=== PATIENT | male | born 1960 | race African-American/Black ===

== ENCOUNTER 2016-12-13 18:37 | Emergency (ER) | payer MEDICAID ==
[~2016-12-13] VITALS: Ht 182.9 cm; Wt 65.1 kg
[~2016-12-13 18:37] MED LIST: FLUT12AE2 IH; GABA800T2 PO; MORP10CA7 PO; OXYC10TA47 PO; TIOT18CA INH
[2016-12-13] MEDS ORDERED: ALBUTEROL SULFATE 2.5 MG/3 ML NPPB ONE (19:30)
[2016-12-13 19:40] LABS: HEMATOCRIT 41.1 % (39.2-51.8); HEMOGLOBIN 13.6 g/dL (13.7-18.0); WHITE BLOOD COUNT 6.7 x10^3/uL (3.4-10)
[2016-12-13] MEDS ORDERED: ALBUTEROL SULFATE 2.5 MG/3 ML ONE (19:42)
[2016-12-13 19:52] LABS: BLOOD UREA NITROGEN 10 mg/dL (7-18)
[2016-12-13 21:00] VITALS: BP 139/79
== END 2016-12-13 21:03 | disposition home or self-care (01) ==
LOC: ED 20:30
DX: R05 Cough (principal); J44.9 Chronic obstructive pulmonary disease, unspecified; M54.9 Dorsalgia, unspecified; G89.29 Other chronic pain
CPT/HCPCS: 36415; 71020; 80048; 82040; 85025; 93005; 94640; 99285; J7613

== ENCOUNTER 2018-03-14 20:28 | Inpatient (IN) | payer MEDICAID ==
[~2018-03-14] VITALS: Ht 182.9 cm; Wt 63.9 kg
[~2018-03-14 20:28] MED LIST changes: -GABA800T2 PO; +GABA800T5 PO
[2018-03-14] MEDS ORDERED: SODIUM CHLORIDE FLUSH 10ML SYR IVF ONE (21:00)
[2018-03-14] MEDS ORDERED: ALBUTEROL/IPRATROPIUM 2.5MG/0.5MG, 3 ML NPPB ONE (21:00)
--- NOTE | 2018-03-14 21:05 | NUR ---
LATE ENTRY: THIS RN WALKED PT. BACK TO ROOM FROM [facility]. PT. TO ED WITH C/O "I HAVE COPD AND I THINK I MIGHT BE GETTING PNA". PT. REPORTS COUGH, CHILLS, ALL OVER BODY ACHES X 2 DAYS. PT. REPORTS SOB/CHEST PAIN "WITH COUGHING". PT. CHANGED INTO GOWN AND PLACED ON CONTINUOUS PULSE OX, B/P, AND HEART MONITORS. CALL LIGHT IN REACH.
[2018-03-14 21:21] LABS: BASOPHILS # (AUTO) 0.02 x10^3/uL (0-0.1); BASOPHILS % (AUTO) 0 % (0-1); EOSINOPHILS # (AUTO) 0.13 x10^3/uL (0-0.4); EOSINOPHILS % (AUTO) 2 % (1-7); LYMPHOCYTES # (AUTO) 0.81 x10^3/uL (1-3.4); LYMPHOCYTES % (AUTO) 10 % (22-44); MD NO; MEAN CORPUSCULAR HEMOGLOBIN 30.7 pg (27.5-34.5); MEAN CORPUSCULAR HGB CONC 33.8 g/dL (33.2-36.2); MEAN CORPUSCULAR VOLUME 90.7 fL (81-97); MEAN PLATELET VOLUME 7.5 fL (7.4-10.4); MONOCYTES # (AUTO) 0.57 x10^3/uL (0.2-0.8); MONOCYTES % (AUTO) 7 % (2-9); NEUTROPHILS # (AUTO) 6.69 x10^3/uL (1.8-6.8); NEUTROPHILS % (AUTO) 81 % (42-75); PLATELET COUNT 264 x10^3/uL (130-400)
[2018-03-14 21:27] LABS: ALANINE AMINOTRANSFERASE 33 U/L (12-78); ANION GAP 6 mmol/L (5-15); CALCIUM 8.3 mg/dL (8.5-10.1); CHLORIDE 105 mmol/L (98-107); CREATININE 1.36 mg/dL (0.7-1.3)
[2018-03-14 21:31] LABS: ALKALINE PHOSPHATASE 106 U/L (45-117); BILIRUBIN,TOTAL 0.4 mg/dL (0.2-1.0); TOTAL PROTEIN 7.6 g/dL (6.4-8.2); TROPONIN I < 0.015 ng/mL (0.000-0.045)
--- NOTE | 2018-03-14 21:34 | NUR ---
RT HAD BEEN IN FOR BREATHING TX; PT. REPORTS FEELING ONLY SLIGHTLY BETTER AFTER THIS. DR. AVALOS WAS IN TO EVAL PT. AND DISCUSS POC A FEW MINUTES AGO.
--- NOTE | 2018-03-14 22:19 | NUR ---
PT. BACK FROM US. FLU SWAB COLLECTED AND SENT TO LAB. PT. MEDICATED PER MAR. Addendum: 03/14/18 at 2237 by MARYJANE THIS NOTE ENTERED BY DANIA RODRIGUEZ
[2018-03-14 22:59] LABS: RAPID INFLUENZA A Negative (Negative); RAPID INFLUENZA B Negative (Negative)
--- NOTE | 2018-03-14 23:20 | NUR ---
PT. BACK FROM US GUIDED FLUID ASPIRATION. DR. AVALOS IN TO DISCUSS POC WITH PT. RECTAL TEMP DONE/CHARTED. PT. TO HAVE CHEST CT DONE. DENIES NEEDS. ALL SAFETY MEASURES OBSERVED
--- NOTE | 2018-03-14 23:46 | NUR ---
PT. TO BE ADMIT FOR PNA. DR. AVALOS ENTERING NEW ORDERS.
--- NOTE | 2018-03-14 23:52 | NUR ---
NEW ORDERS RECEIVED; WILL HAND ROCEPHIN SOON 2 SETS OF BLOOD CULTURES HAVE BEEN COMPLETED. DR. AVALOS WAS IN TO DISCUSS POC WITH PT.
[2018-03-15] MEDS ORDERED: AZITHROMYCIN 500 MG in SODIUM CHLORIDE 0.9% 250 ML IV ONE
[2018-03-15] MEDS ORDERED: CEFTRIAXONE PMX 1GM/50ML 50 ML IV ONE
--- NOTE | 2018-03-15 00:01 | NUR ---
REPORT TO [facility] BUTT. FLOOR READY FOR PT. LAB AT [facility] FOR BLOOD CULTURES AT THIS TIME.
[2018-03-15] MEDS ORDERED: CEFTRIAXONE PMX 1GM/50ML 50 ML ONE (00:06)
[2018-03-15] MEDS: CEFTRIAXONE PMX 1GM/50ML 50 ML IV SCH (00:12)
--- NOTE | 2018-03-15 00:13 | NUR ---
IV ABX HUNG; 2 SETS OF BLOOD CULTURES WERE COMPLETED PRIOR.
[2018-03-15] MEDS ORDERED: ACETAMINOPHEN 325 MG TABLET PO PRN (00:30)
[2018-03-15] MEDS ORDERED: POLYETHYLENE GLYCOL 17 GM PACKET PO PRN (00:30)
[2018-03-15] MEDS ORDERED: BISACODYL 10 MG SUPP PR PRN (00:30)
[2018-03-15] MEDS ORDERED: ONDANSETRON ODT 4 MG PO PRN (00:30)
[2018-03-15] MEDS ORDERED: GUAIFENESIN/DM 200-20MG, 10ML UDC PO PRN (00:30)
[2018-03-15] MEDS: SODIUM CHLORIDE 0.9% 1,000 ML IV SCH ×3 (00:36→18:52)
[2018-03-15] MEDS: HEPARIN 5,000 UNITS/ML, 1ML SQ SCH ×3 (00:37→16:30)
[2018-03-15 00:55] VITALS: BP 108/69
[2018-03-15] MEDS: DOXYCYCLINE 100 MG in DEXTROSE 5% 250 ML IV SCH ×2 (01:01→12:23)
[2018-03-15 03:19] VITALS: BP 108/69
[2018-03-15 05:16] LABS: MEAN CORPUSCULAR HEMOGLOBIN 31.1 pg (27.5-34.5); MEAN CORPUSCULAR HGB CONC 33.9 g/dL (33.2-36.2); MEAN CORPUSCULAR VOLUME 91.8 fL (81-97); MEAN PLATELET VOLUME 7.9 fL (7.4-10.4); PLATELET COUNT 219 x10^3/uL (130-400); RED BLOOD COUNT 3.94 x10^6/uL (4.38-5.82)
[2018-03-15 05:23] LABS: ALBUMIN 3.6 g/dL (3.4-5.0); ANION GAP 5 mmol/L (5-15); CALCIUM 8.3 mg/dL (8.5-10.1); CHLORIDE 108 mmol/L (98-107)
[2018-03-15 05:27] LABS: ALANINE AMINOTRANSFERASE 28 U/L (12-78); ALKALINE PHOSPHATASE 100 U/L (45-117); BILIRUBIN,TOTAL 0.6 mg/dL (0.2-1.0); CREATININE 1.22 mg/dL (0.7-1.3); TOTAL PROTEIN 7.2 g/dL (6.4-8.2)
[2018-03-15 05:45] LABS: BASOPHILS % (AUTO) 0 % (0-1); EOSINOPHILS % (AUTO) 0 % (1-7); LYMPHOCYTES # (AUTO) 0.27 x10^3/uL (1-3.4); LYMPHOCYTES % (AUTO) 4 % (22-44); MD SCAN; MONOCYTES # (AUTO) 0.04 x10^3/uL (0.2-0.8); MONOCYTES % (AUTO) 1 % (2-9); NEUTROPHILS # (AUTO) 7.38 x10^3/uL (1.8-6.8); NEUTROPHILS % (AUTO) 96 % (42-75)
[2018-03-15] MEDS: ALBUTEROL/IPRATROPIUM 2.5MG/0.5MG, 3 ML NPPB SCH ×4 (07:00→19:34)
[2018-03-15 08:00] VITALS: BP 113/71
[2018-03-15] MEDS: BUDESONIDE 0.5 MG/2 ML INHA NPPB SCH ×2 (09:00→19:34)
[2018-03-15] MEDS: GUAIFENESIN ER 600 MG TABLET PO SCH ×2 (10:01→20:11)
[2018-03-15] MEDS: SENNA/DOCUSATE TABLET PO SCH (10:01)
[2018-03-15 13:22] VITALS: BP 115/71
[2018-03-15 19:19] VITALS: BP 123/73
[2018-03-16] MEDS: CEFTRIAXONE PMX 1GM/50ML 50 ML IV SCH (00:22)
[2018-03-16] MEDS: HEPARIN 5,000 UNITS/ML, 1ML SQ SCH ×2 (00:30→08:30)
[2018-03-16 01:14] VITALS: BP 108/70
[2018-03-16] MEDS: DOXYCYCLINE 100 MG in DEXTROSE 5% 250 ML IV SCH (01:19)
[2018-03-16] MEDS: SODIUM CHLORIDE 0.9% 1,000 ML IV SCH (02:57)
[2018-03-16 05:40] LABS: BASOPHILS # (AUTO) 0.01 x10^3/uL (0-0.1); BASOPHILS % (AUTO) 0 % (0-1); EOSINOPHILS # (AUTO) 0.03 x10^3/uL (0-0.4); EOSINOPHILS % (AUTO) 1 % (1-7); LYMPHOCYTES % (AUTO) 16 % (22-44); MD NO; MEAN CORPUSCULAR HEMOGLOBIN 31.3 pg (27.5-34.5); MEAN CORPUSCULAR HGB CONC 34.1 g/dL (33.2-36.2); MEAN CORPUSCULAR VOLUME 91.9 fL (81-97); MEAN PLATELET VOLUME 7.9 fL (7.4-10.4); MONOCYTES # (AUTO) 0.51 x10^3/uL (0.2-0.8); MONOCYTES % (AUTO) 8 % (2-9); NEUTROPHILS # (AUTO) 5.24 x10^3/uL (1.8-6.8); NEUTROPHILS % (AUTO) 76 % (42-75); PLATELET COUNT 205 x10^3/uL (130-400); RED BLOOD COUNT 3.39 x10^6/uL (4.38-5.82); RED CELL DISTRIBUTION WIDTH 13.2 % (9.4-14.8)
[2018-03-16 05:41] LABS: ANION GAP 6 mmol/L (5-15); CALCIUM 7.9 mg/dL (8.5-10.1); CHLORIDE 113 mmol/L (98-107)
[2018-03-16 05:49] LABS: CREATININE 0.96 mg/dL (0.7-1.3)
[2018-03-16] MEDS: ALBUTEROL/IPRATROPIUM 2.5MG/0.5MG, 3 ML NPPB SCH (06:56)
[2018-03-16] MEDS ORDERED: DOXY100T PO (07:46)
[2018-03-16] MEDS ORDERED: GUAI600T31 PO (07:46)
[2018-03-16] MEDS ORDERED: TAMS-11 PO (07:46)
[2018-03-16] MEDS ORDERED: CEFD300C37 PO (07:46)
[2018-03-16 08:00] VITALS: BP 127/82
[2018-03-16] MEDS ORDERED: TAMSULOSIN 0.4 MG CAP.ER.24H PO SCH (09:00)
[2018-03-16] MEDS: SENNA/DOCUSATE TABLET PO SCH (09:00)
[2018-03-16] MEDS: GUAIFENESIN ER 600 MG TABLET PO SCH (09:10)
== END 2018-03-16 12:14 | disposition home or self-care (01) | DRG 871 ==
LOC: ED 22:38 → EDIP 23:44 → 3NW 03-15 00:23 → DCLOUNGE 03-16 12:10
PROVIDERS: ADMIT Internal Medicine; ATTEND Internal Medicine
PROC: 0Y9D3ZZ Drainage of Left Upper Leg, Percutaneous Approach (ICD-10-PCS; principal; 2018-03-14)
DX: A41.9 Sepsis, unspecified organism (principal); J18.9 Pneumonia, unspecified organism; J96.21 Acute and chronic respiratory failure with hypoxia; J44.0 Chronic obstructive pulmonary disease with (acute) lower respiratory infection; J44.1 Chronic obstructive pulmonary disease with (acute) exacerbation; D64.9 Anemia, unspecified; G89.29 Other chronic pain; J06.9 Acute upper respiratory infection, unspecified; Z87.01 Personal history of pneumonia (recurrent); Z87.891 Personal history of nicotine dependence; Z99.81 Dependence on supplemental oxygen; S80.12XA Contusion of left lower leg, initial encounter; X58.XXXA Exposure to other specified factors, initial encounter; Y93.89 Activity, other specified; Y92.89 Other specified places as the place of occurrence of the external cause; Y99.8 Other external cause status
CPT/HCPCS: 36415; 84145; 87400; J7620; J7626; 71045; 71250; 76942; 80048; 80053; 83605; 84484; 85025; 87040; 87070; 87205; 88112; 88305; 93005; 94640; G0378; J0696; J1644; J7060; J7030; J7512

== ENCOUNTER 2018-09-06 16:15 | Inpatient (IN) | payer MEDICAID ==
[~2018-09-06] VITALS: Ht 182.9 cm; Wt 65.8 kg
[~2018-09-06 16:15] MED LIST changes: +CEFD300C37 PO; +DOXY100T PO; +GUAI600T31 PO; +TAMS-11 PO
[2018-09-06] MEDS ORDERED: FLUT1DIS IH (16:32)
[2018-09-06] MEDS ORDERED: ALBU0.63 NEB (16:32)
--- NOTE | 2018-09-06 16:32 | NUR ---
PATIENT BIB [facility] FOR SUDDEN ONSET LLQ PAIN RADIATING TO BACK LAST NIGHT. PATIENT REPORTS CHRONIC BACK PAIN IN PAST BUT THIS IS WORSE PAIN THAN USUAL. PATIENT ALSO C/O WISE STARTING LAST NIGHT. HX OF COPD. AWAITING MD ORDERS, CALL LIGHT WITHIN REACH.
[2018-09-06] MEDS ORDERED: HYDROcodone/APAP 5/325 TABLET ONE (16:43)
[2018-09-06] MEDS ORDERED: ONDANSETRON ODT 4 MG ONE (16:43)
[2018-09-06] MEDS ORDERED: OXYcodone/APAP 5/325MG TABLET ONE (16:49)
--- NOTE | 2018-09-06 16:50 | NUR ---
XRAY COMPLETED, PATIENT TO CT VIA NADN. ELYSSA
[2018-09-06 16:54] LABS: BASOPHILS # (AUTO) 0.01 x10^3/uL (0-0.1); BASOPHILS % (AUTO) 0 % (0-1); EOSINOPHILS # (AUTO) 0.02 x10^3/uL (0-0.4); EOSINOPHILS % (AUTO) 0 % (1-7); LYMPHOCYTES # (AUTO) 0.31 x10^3/uL (1-3.4); LYMPHOCYTES % (AUTO) 2 % (22-44); MD NO; MEAN CORPUSCULAR HEMOGLOBIN 31.1 pg (27.5-34.5); MEAN CORPUSCULAR HGB CONC 33.4 g/dL (33.2-36.2); MEAN CORPUSCULAR VOLUME 93.2 fL (81-97); MEAN PLATELET VOLUME 7.4 fL (7.4-10.4); MONOCYTES % (AUTO) 6 % (2-9); NEUTROPHILS # (AUTO) 11.77 x10^3/uL (1.8-6.8); NEUTROPHILS % (AUTO) 91 % (42-75); PLATELET COUNT 208 x10^3/uL (130-400); RED BLOOD COUNT 4.24 x10^6/uL (4.38-5.82); RED CELL DISTRIBUTION WIDTH 13.8 % (9.4-14.8)
[2018-09-06 17:00] LABS: ALANINE AMINOTRANSFERASE 37 U/L (12-78); ALBUMIN 3.7 g/dL (3.4-5.0); ANION GAP 5 mmol/L (5-15); CALCIUM 8.9 mg/dL (8.5-10.1); CHLORIDE 105 mmol/L (98-107)
[2018-09-06] MEDS ORDERED: OXYcodone/APAP 5/325MG TABLET PO ONE (17:00)
[2018-09-06] MEDS ORDERED: ONDANSETRON ODT 4 MG PO ONE (17:00)
[2018-09-06 17:02] LABS: ALKALINE PHOSPHATASE 94 U/L (45-117); BILIRUBIN,TOTAL 0.8 mg/dL (0.2-1.0); TOTAL PROTEIN 7.3 g/dL (6.4-8.2)
[2018-09-06] MEDS ORDERED: SODIUM CHLORIDE FLUSH 10ML SYR IVF ONE (17:30)
[2018-09-06] MEDS ORDERED: SODIUM CHLORIDE 0.9% 1,000ML IVBOLUS ONE (17:30)
[2018-09-06] MEDS ORDERED: CEFTRIAXONE PMX 1GM/50ML 50 ML IVPB ONE (17:30)
[2018-09-06] MEDS ORDERED: CEFTRIAXONE PMX 1GM/50ML 50 ML ONE (17:34)
--- NOTE | 2018-09-06 17:44 | NUR ---
NEW ORDERS, IV ESTABLISHED, LABS AND BLOOD CULTURES X 2 DRAWN. IVF AND ABX ADMINISTERED. BLOOD CULTURES DRAWN PRIOR TO ABX. VS UPDATED IN CHART, PATIENT UPDATED ON POC. UA COLLECTED AND SENT TO LAB. AWAITING RESULTS. PATIENT SITTING IN GURNEY, WARM BLANKET PROVIDED PER REQUEST, JENA.
[2018-09-06 18:08] LABS: MICROSCOPIC INDICATED
[2018-09-06 18:09] LABS: CULTURE INDICATED? YES
[2018-09-06] MEDS ORDERED: DOXYCYCLINE 100 MG in DEXTROSE 5% 250 ML IV ONE (18:30)
--- NOTE | 2018-09-06 18:30 | NUR ---
PATIENT 84% RA WHILE SLEEPING, SUUPLEMENTAL O2 APPLIED, PATIENT NOW 93% 2L NC, 1ST ABX COMPLETED, 2ND ABX ADMINISTERED PER ORDER. PATIENT RESTING IN JENA BERGERON. AWAITING BED ASSIGNENT,VS UPDATED IN CHART.
--- NOTE | 2018-09-06 18:44 | NUR ---
PATIENT TO [facility]ADIAG[facility].
--- NOTE | 2018-09-06 19:01 | NUR ---
PATIENT TRANSFERRED/ADMITTED TO BED UPSTAIRS.
[2018-09-06 19:16] VITALS: BP 110/77
[2018-09-06] MEDS ORDERED: hydrALAzine 20 MG/ML, 1ML IVPush PRN (20:00)
[2018-09-06] MEDS: ENOXAPARIN 40 MG/0.4 ML SQ SCH (20:00)
[2018-09-06] MEDS ORDERED: ACETAMINOPHEN 325 MG TABLET PO PRN (20:00)
[2018-09-06] MEDS: DOXYCYCLINE 100MG CAP PO SCH (21:39)
[2018-09-06] MEDS: SODIUM CHLORIDE 0.9% 1,000 ML IV SCH (21:39)
[2018-09-06] MEDS ORDERED: ALBUTEROL/IPRATROPIUM 2.5MG/0.5MG, 3 ML NPPB PRN (22:00)
[2018-09-06] MEDS ORDERED: GUAIFENESIN/COD200MG-20MG/10ML LIQUID PO PRN (22:30)
[2018-09-07 01:59] VITALS: BP 113/73
[2018-09-07 04:37] LABS: BASOPHILS % (AUTO) 0 % (0-1); EOSINOPHILS # (AUTO) 0.03 x10^3/uL (0-0.4); EOSINOPHILS % (AUTO) 0 % (1-7); LYMPHOCYTES # (AUTO) 0.67 x10^3/uL (1-3.4); LYMPHOCYTES % (AUTO) 6 % (22-44); MD NO; MEAN CORPUSCULAR HEMOGLOBIN 31.4 pg (27.5-34.5); MEAN CORPUSCULAR HGB CONC 33.3 g/dL (33.2-36.2); MEAN CORPUSCULAR VOLUME 94.3 fL (81-97); MEAN PLATELET VOLUME 7.6 fL (7.4-10.4); MONOCYTES # (AUTO) 0.92 x10^3/uL (0.2-0.8); MONOCYTES % (AUTO) 8 % (2-9); NEUTROPHILS # (AUTO) 10.32 x10^3/uL (1.8-6.8); NEUTROPHILS % (AUTO) 87 % (42-75); PLATELET COUNT 177 x10^3/uL (130-400); RED BLOOD COUNT 3.74 x10^6/uL (4.38-5.82); RED CELL DISTRIBUTION WIDTH 13.5 % (9.4-14.8)
[2018-09-07 04:47] LABS: ALANINE AMINOTRANSFERASE 50 U/L (12-78); ANION GAP 5 mmol/L (5-15); CALCIUM 8.2 mg/dL (8.5-10.1); CHLORIDE 110 mmol/L (98-107); CREATININE 1.08 mg/dL (0.7-1.3)
[2018-09-07 04:49] LABS: ALKALINE PHOSPHATASE 96 U/L (45-117); BILIRUBIN,TOTAL 0.5 mg/dL (0.2-1.0); TOTAL PROTEIN 6.2 g/dL (6.4-8.2)
[2018-09-07] MEDS: CEFTRIAXONE PMX 2GM/50ML 50 ML IV SCH (05:44)
[2018-09-07 07:06] VITALS: BP 107/71
[2018-09-07] MEDS: DOXYCYCLINE 100MG CAP PO SCH ×2 (07:57→20:12)
[2018-09-07] MEDS: SODIUM CHLORIDE 0.9% 1,000 ML IV SCH (07:58)
[2018-09-07 12:33] VITALS: BP 111/77
[2018-09-07 19:21] VITALS: BP 116/77
[2018-09-07] MEDS: ENOXAPARIN 40 MG/0.4 ML SQ SCH (20:00)
[2018-09-08 03:17] VITALS: BP 119/81
[2018-09-08 05:18] LABS: BASOPHILS # (AUTO) 0.01 x10^3/uL (0-0.1); BASOPHILS % (AUTO) 0 % (0-1); EOSINOPHILS # (AUTO) 0.32 x10^3/uL (0-0.4); EOSINOPHILS % (AUTO) 4 % (1-7); LYMPHOCYTES # (AUTO) 0.77 x10^3/uL (1-3.4); LYMPHOCYTES % (AUTO) 9 % (22-44); MD NO; MEAN CORPUSCULAR HEMOGLOBIN 31.2 pg (27.5-34.5); MEAN CORPUSCULAR HGB CONC 32.9 g/dL (33.2-36.2); MEAN CORPUSCULAR VOLUME 94.8 fL (81-97); MEAN PLATELET VOLUME 7.8 fL (7.4-10.4); MONOCYTES # (AUTO) 0.63 x10^3/uL (0.2-0.8); MONOCYTES % (AUTO) 7 % (2-9); NEUTROPHILS # (AUTO) 6.75 x10^3/uL (1.8-6.8); NEUTROPHILS % (AUTO) 80 % (42-75); PLATELET COUNT 208 x10^3/uL (130-400); RED BLOOD COUNT 3.88 x10^6/uL (4.38-5.82); RED CELL DISTRIBUTION WIDTH 13.7 % (9.4-14.8)
[2018-09-08 05:25] LABS: ANION GAP 7 mmol/L (5-15); CALCIUM 8.2 mg/dL (8.5-10.1); CHLORIDE 110 mmol/L (98-107); CREATININE 1.01 mg/dL (0.7-1.3)
[2018-09-08] MEDS: CEFTRIAXONE PMX 2GM/50ML 50 ML IV SCH (05:55)
[2018-09-08 07:17] VITALS: BP 104/69
[2018-09-08] MEDS: DOXYCYCLINE 100MG CAP PO SCH (08:33)
[2018-09-08 13:40] VITALS: BP 131/84
[2018-09-08] MEDS ORDERED: CEFD300C37 PO (14:14)
[2018-09-08] MEDS ORDERED: DOXY100T PO (14:14)
== END 2018-09-08 17:18 | disposition home or self-care (01) | DRG 190 ==
LOC: ED 18:20 → EDIP 18:21 → ED 18:46 → 3NE 18:58
PROVIDERS: ADMIT Family Medicine; ATTEND Family Medicine
DX: J44.0 Chronic obstructive pulmonary disease with (acute) lower respiratory infection (principal); J18.1 Lobar pneumonia, unspecified organism; D64.9 Anemia, unspecified; E86.0 Dehydration; F12.90 Cannabis use, unspecified, uncomplicated; N40.0 Benign prostatic hyperplasia without lower urinary tract symptoms; Z79.01 Long term (current) use of anticoagulants; Z99.81 Dependence on supplemental oxygen
CPT/HCPCS: 36415; 71045; 74176; 80048; 80053; 81001; 83605; 84145; 85025; 87040; 87086; 96365; 99285; G0378; J0696; J7060; Q0162; J7030